=== PATIENT | male | born 1970 | race Caucasian/White ===

== ENCOUNTER 2024-04-26 11:53 | Outpatient (REF) | payer MEDICAID, SELFPAY ==
--- NOTE | ~2024-04-26 | XR_ITS ---
EXAMINATION: XR SHOULDER LEFT 3 VIEWS CLINICAL INFORMATION: Pain in left shoulder M25.512. COMPARISON: None TECHNIQUE: AP external rotation, Grashey, scapular Y, and axillary views of the left shoulder. FINDINGS: The bones and soft tissues are normal. No fracture. Glenohumeral and acromioclavicular alignment is anatomic with normal joint space. No abnormal soft tissue calcifications. XR/XR shoulder LT min 2V IMPRESSION: No osseous changes to explain patient's pain symptoms. Electronically signed by: Abigail Guzman MD 06/30/2024 04:32 PM ASHA HORAN
== END 2024-04-26 11:54 | disposition home or self-care (01) ==
LOC: HO.HOSX 11:53
PROVIDERS: Visit Provider Physician Assistant
DX: M25.512 Pain in left shoulder (principal); M75.82 Other shoulder lesions, left shoulder
CPT/HCPCS: 73030; 99212

== ENCOUNTER 2024-04-26 13:24 | Outpatient (AMB) | payer MEDICAID, SELFPAY ==
[2024-04-26 13:40] VITALS: BMI 30.2
--- NOTE | 2024-04-26 13:40 | MHC.OFFVIS ---
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 Patient reports his shoulder pain has been present over 6 months. His pain is located above his clavicle. No numbness or tinging. His pain increases with certain arm movements. Denies injury. He attended PT with no relief. 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 He denies any shoulder injury. He states he has pain located above his clavicle that is aggravated with certain arm movements. He has tried physical therapy which did not provide him any relief. [facility] Surgical History (Updated 04/26/24 @ 13:42 by AVERY Fabian) History of ankle surgery Social History (Updated 04/26/24 @ 13:43 by AVERY Fabian) Patient Tobacco Use Status: Never used Tobacco Current occupational status: employed Current occupation: tow truck driver Review of Systems Const All systems reviewed & are unremarkable except as noted in HPI and below Physical Exam Vital Signs: BMI result Body Mass Index 30.2 Const General: cooperative, healthy appearing, comfortable, no acute distress, well developed and alert Orientation/consciousness: patient oriented x3 HEENT Head: Yes normal to inspection, Yes normocephalic and Yes atraumatic Eyes General: appearance normal, both eyes and all related structures Resp Effort & Inspection: normal respiratory effort and able to speak in complete sentences Cardio Rate: regular rate Peripheral pulses: Peripheral pulses 2+ throughout GI Palpation (GI): Soft to palpation Skin Lesions: no lesions Rashes: no rashes Neuro General: patient oriented x3 Extrem Other: Left shoulder: Normal to inspection. Tenderness over the bicipital groove and along the deltoid region of the shoulder. Forward flexion to 175, external rotation to 90, internal rotation to S1. 5/5 RTC strength with mild pain on lift off .Positive Pak and cross body abduction. NVI. Results Reviewed Results Reviewed: Xrays were obtained in the office today and personally reviewed by me of the left shoulder are negative for acute fracture or dislocations. Assessment & Plan Assessment & Plan (1) Tendonitis of left rotator cuff: Code(s): M75.82 - Other shoulder lesions, left shoulder Category: Medical Plan We discussed options which include PT, NSAIDs and injections. The patient will defer on the injection today and proceed with PT and NSAIDs. If symptoms persist, she will contact me for an injection, otherwise, PRN. Orders: Orders XR shoulder LT min 2V Today M25.512 - Pain in left shoulder PT Evaluation and Treatment Today M75.82 - Other shoulder lesions, left shoulder Medications: New naproxen 500 mg PO BID 60 tabs 3RF 30 days naproxen 500 mg PO BID 30 days 60 tabs 3RF Patient Instructions: Scribed for Stacey Bennett PA-C, by Jose A Lyons medical clinic manager, on 04/26/2024 at 1:45 PM EST.? I, Stacey Bennett PA-C, have personally reviewed and agree with the information entered by the scribe. Coding Level of Care Code New Pt Level 3 (79188) Complex EM visit Add On G2211 Diagnoses Tendonitis of left rotator cuff M75.82
== END 2024-04-26 15:26 | disposition home or self-care (01) ==
PROVIDERS: PCP Nurse Practitioner Family; Visit Provider Physician Assistant
DX: M75.82 Other shoulder lesions, left shoulder (principal)
CPT/HCPCS: 99203

== ENCOUNTER 2024-07-12 11:00 | Outpatient (RCR) | payer MEDICAID, SELFPAY ==
--- NOTE | 2024-06-22 11:39 | MHC.PT.EP ---
[facility] [place] Office [place] Office [place] Office [address] Capone [address] [phone] F: [phone] F: [phone] F: [phone] F: [phone] Physical Therapy Plan of Care Date of Evaluation: 06/22/24 Date of Surgery: n/a Diagnosis: tendonitis of L RC Assessment: Patient is a 53 year old male presenting to PT with complaints of pain in his L shoulder. Pt reports onset of pain began about 10 months ago due to insidious onset. He presents today with impairments in pain, ROM, posture, strength. Pt's current occupation is none, with baseline physical activities including ADLs, housework, yardwork. Pt expresses alf goal of reducing pain, and is motivated to work towards this in PT. Clinical presentation today is most consistent with signs and sx associated with L shoulder pain and pt will benefit from skilled PT 2 week x 4 weeks to address the following problems and impairments noted upon evaluation: pain, ROM, posture, strength. These problems limit the patient with the following functional activities: ADLs, housework, yardwork. The prescribed treatment plan of care is medically necessary. Co-morbidities of none were identified and taken into considerations of plan of care. Pt was educated on HEP, role of PT, prognosis, POC. Frequency and Duration: The patient will be seen 2 x week x 4 weeks Short Term Goals: Pt will demonstrate symmetrical shoulder ROM with min to no pain in 2 weeks. Pt will demonstrate improved L shoulder MMT strength by 1/3 grade in 2 weeks. Pt will demonstrate improved posture as evidence by min to no cues during the session in 2 weeks. Crm Manager Goals: Pt will demonstrate improved SPADI score by 13 points in 4 weeks for improved functional mobility. Pt will demonstrate ability to reach with min to no pain in 4 weeks for improved tolerance to ADLs. Pt will demonstrate ability to lift with min to no pain in 4 weeks for improved tolerance to yard and housework at [facility]. Treatment Plan: Modalities to reduce pain, spasms and effusion. Manual therapy to restore motion and function. Therapeutic exercise to improve strength and flexibility. Neuromuscular re-education for posture and balance. Therapeutic activities to return to functional activities of daily living. Electronically signed by: Pooja Carlos, PT, DPT, ATC Please sign and return to therapist. Thank you for your referral.
--- NOTE | 2024-07-30 07:52 | MHC.PT.DC ---
[facility] [place] Office [place] Office [place] Office [address] [phone] F: [phone] F: [phone] F: [phone] F: [phone] Physical Therapy Discharge Report Diagnosis: tendonitis of L RC Date of Surgery: n/a Date of Evaluation: 06/22/24 Date of Discharge: 07/30/24 Treatments to Date: 5 Cancellations to Date: 3 No Shows to Date: 1 Discharge Status: Visit Non-compliance Discharge Summary: Pt no showed his last scheduled visit and cancelled the two prior to that. Pt to be d/c. Electronically signed by: Pooja Carlos, PT, DPT, ATC Please sign and return to therapist. Thank you for your referral.
== END 2024-07-30 07:53 | disposition home or self-care (01) ==
LOC: HO.PTCHIC 11:00
PROVIDERS: PCP Nurse Practitioner Family; Visit Provider Physician Assistant
DX: M75.82 Other shoulder lesions, left shoulder (principal)
CPT/HCPCS: 97110; 97161